=== PATIENT | female | born 1965 | race Caucasian/White ===

== ENCOUNTER → 2016-12-29 | Outpatient (CLI) | payer OTHER ==
--- NOTE | 2016-12-30 09:02 | MR ---
EXAMINATION TYPE: MR knee LT wo con DATE OF EXAM: 12/29/2016 7:24 PM COMPARISON: NONE HISTORY: Swelling and pain left knee TECHNIQUE: Multiplanar, multisequence imaging of the left knee was performed without contrast. FINDINGS: MEDIAL MENISCUS: Anterior and posterior horns are intact without tear. LATERAL MENISCUS: Anterior and posterior horns are intact without tear. CRUCIATE LIGAMENTS: There is abnormal signal and thickening involving the ACL near its femoral insert ion felt to reflect strain with partial tear. No evidence for ACL rupture. PCL has a normal appearanc e. COLLATERAL LIGAMENTS: The medial collateral ligament and lateral collateral ligament complex are intact and unremarkable. EXTENSOR MECHANISM: Visualized quadriceps and patellar tendons are intact. EFFUSION: Small suprapatellar joint effusion identified. POPLITEAL CYST: 3.1 cm fluid collection craniocaudal measurement adjacent to the PCL is felt to refle ct a ganglion cyst. TRICOMPARTMENT SPACES: The tricompartment joint spaces appear mild narrowing mild subchondral cyst fo rmation. Early changes of chondromalacia patella noted. CARTILAGE: The articular cartilage is maintained without abnormal signal or full-thickness defect. BONE MARROW SIGNAL: No focal abnormal marrow signal is appreciated: OTHER: No additional significant abnormality is appreciated. IMPRESSION: 1. Findings felt to reflect ACL strain or partial tear as discussed above. 2. Changes of osteoarthritis. 3. Ganglion cyst adjacent to the PCL.
== END | disposition home or self-care (01) ==
LOC: RADMRIMAIN 18:37
PROVIDERS: ATTEND Orthopaedic Surgery
DX: M17.12 Unilateral primary osteoarthritis, left knee (principal); M67.462 Ganglion, left knee

== ENCOUNTER → 2018-08-05 | Outpatient (CLI) | payer OTHER ==
--- NOTE | 2018-08-05 09:25 | BD ---
EXAMINATION TYPE: Axial Bone Density DATE OF EXAM: 08/05/2018 COMPARISON: NONE CLINICAL HISTORY: Height: 5 FT 4 1/2 IN Weight: 221 FRAX RISK QUESTIONS: RISK FACTORS HISTORY OF: Surgery to Spine/Hip(right/left)/Wrist (right/left): LUMBAR SURG X 2 When: OVER 10 YEARS AGO Active: YES Postmenopausal woman: ABLASION AGE [age] NO REAL SYMPTOMS OF MENOPAUSE NOW MEDICATIONS: Thyroid Medications: YES Which medication: SYNTHROID How Long: SINCE 1998 Additional Medications: SYNTHROID, DISOPYRAMIDE, LISINOPRIL, ESCITALOPRAM Additional History: PT HAD HYPERTHYROIDISM AND HAD THYROID BURNED OUT NOW IS HYPOTHYROID EXAM MEASUREMENTS: Bone mineral density about the R hip (g/cm2): 0.876 Bone mineral density about the L hip (g/cm2): 0.942 T Score values are as follows: -----R Neck: -1.2 -----L Neck: -0.7 -----R Total: -0.2 -----L Total: 0.0 BASELINE Bone mineral density about the L Wrist (g/cm2): 0.680 T Score values are as follows: -----Dist. R+U: -0.6 -----Prox. R+U: 0.1 -----Radius total: 0.1 BASELINE IMPRESSION: Osteopenia (T Score between -2.5 and -1). There is slightly increased risk of fracture and the patient may be considered for treatment. Re-Screen 2-5 years. NOTE: T-SCORE=SD OF THE YOUNG ADULT MEAN.
--- NOTE | 2018-08-06 10:03 | MM ---
Reason for exam: screening (asymptomatic). Last mammogram was performed 4 years and 1 month ago. History: Patient is nulliparous. Family history of breast cancer in cousin at age 35. Taking hormonal contraceptives for 14 years 8 months. Physical Findings: A clinical breast exam by your physician is recommended on an annual basis and results should be correlated with mammographic findings. MG 3D Screening Mammo W/Cad Bilateral CC and MLO view(s) were taken. Prior study comparison: July 14, 2014, bilateral MG screening mammo w CAD. May 14, 2011, bilateral digital screening mammo w/CAD. The breast tissue is heterogeneously dense. This may lower the sensitivity of mammography. There is no discrete abnormality. No significant changes when compared with prior studies. ASSESSMENT: Negative, BI-RAD 1 RECOMMENDATION: Routine screening mammogram of both breasts in 1 year.
== END | disposition home or self-care (01) ==
LOC: RADMAMWWP 07:43
PROVIDERS: ATTEND Obstetrics & Gynecology
DX: Z12.31 Encounter for screening mammogram for malignant neoplasm of breast (principal); M85.88 Other specified disorders of bone density and structure, other site
CPT/HCPCS: 77063; 77067; 77080

== ENCOUNTER 2020-11-29 07:30 | Day surgery (SDC) | payer OTHER ==
[2020-11-27 15:08] VITALS: BMI 36.3
[~2020-11-29 07:30] MED LIST: ALPRAZolam 0.25 MG TAB PO PRN; ALPRAZolam 0.5 MG TAB PO PRN; ASPIRIN 325 MG TAB PO ONE; ATORVASTATIN 80 MG TAB PO ONE; NITROGLYCERIN SL TABS 0.4 MG TAB SUBLINGUAL PRN; SODIUM CHLORIDE 0.9% 1,000 ML in EMPTY BAG 1 BAG IV ONE
[2020-11-29] MEDS ORDERED: SODIUM CHLORIDE 0.9% 1,000 ML IV ONE (07:52)
[2020-11-29 08:07] VITALS: RESP 16; TEMP 98.7
[2020-11-29] MEDS ORDERED: VERAPAMIL 2.5 MG/ML 2 ML AMP ONE (09:29)
[2020-11-29] MEDS ORDERED: LIDOCAINE 1% INJ 10MG/ML (20 ML MDV) ONE (09:29)
[2020-11-29] MEDS ORDERED: HEPARIN SODIUM 1,000 UN/ML (10ML VL) ONE (10:10)
[2020-11-29] MEDS ORDERED: MIDAZOLAM 2 MG/2 ML VIAL IV ONE ×2 (10:16)
[2020-11-29] MEDS ORDERED: LIDOCAINE 1% INJ 10MG/ML (20 ML MDV) SQ ONE (10:20)
[2020-11-29] MEDS: VERAPAMIL SYRINGE (5 MG/10 ML) INTRAARTER ONE ×2 (10:22→10:31)
[2020-11-29] MEDS ORDERED: HEPARIN SODIUM 1,000 UN/ML (10ML VL) IV ONE (10:25)
[2020-11-29] MEDS ORDERED: IOPAMIDOL-370 125ML BTL INJ ONE (10:31)
[2020-11-29] MEDS ORDERED: RX INFO: IV CONTRAST WAS GIVEN 1 EACH MISC MISCELLANE PRN (10:38)
[2020-11-29] MEDS ORDERED: SODIUM CHLORIDE 0.9% 1,000 ML IV SCH (10:45)
--- NOTE | 2020-11-29 12:09 | CC ---
CARDIAC CATHETERIZATION REPORT DATE OF SERVICE: November 29, 2020. INDICATION: This is a very pleasant 55-year-old female patient with obesity and hypertension and paroxysmal atrial fibrillation, who was experiencing symptoms of shortness of breath. She underwent myocardial perfusion imaging by Dr. Gomez and that revealed a reversible defect. Because of that, a heart catheterization was advised. APPROACH: Right radial artery. COMPLICATION: None. LEVEL OF SEDATION: Moderate with sedation length of 15 minutes. PROCEDURE DESCRIPTION: After obtaining an informed consent, the patient was brought to the cardiac refuse laborer. The right radial artery was cannulated using micropuncture technique and a micropuncture wire passed easily then I placed a 6-Nepali sheath. After that I gave the patient 2 mg of verapamil IA and 8000 units of heparin IV. Selective right and left coronary angiogram performed using JR4 and JL3.5 catheters. Left heart catheterization was performed using JR4 catheter which crossed the aortic valve then I did pullback across the valve. The procedure was completed without any complication. SELECTIVE CORONARY ANGIOGRAM: 1. The RCA is a large caliber vessel. It is a dominant vessel. The RCA is angiographically normal. Distally, it bifurcates into PDA and PLV branches, both appear to be angiographically normal. 2. The left main is angiographically normal. It bifurcates into a nondominant left circumflex and left anterior descending artery. 3. Left circumflex is a large caliber vessel. It is a nondominant vessel and appeared to be angiographically normal. 4. The LAD is a large caliber vessel. The LAD is angiographically normal. It proximally gives rise into a large diagonal branch which seems to be angiographically normal. HEMODYNAMICS: The LVEDP was 18 mmHg without significant gradient across aortic valve. CONCLUSION: 1. Normal coronary angiogram. 2. Elevated filling pressure. POSTPROCEDURE MANAGEMENT: 1. Continue the current medical regimen. 2. The patient might benefit from as an outpatient. 3. Follow up with the patient. MMODL / IJN: [id number] /
[2020-11-29 18:07] VITALS: BP 116/57; PULSE 58
== END 2020-11-29 16:00 | disposition home or self-care (01) ==
LOC: CATHCVL 07:30
PROVIDERS: ATTEND Family Medicine
DX: R06.02 Shortness of breath (principal); R94.39 Abnormal result of other cardiovascular function study; I10 Essential (primary) hypertension; I48.0 Paroxysmal atrial fibrillation; I49.3 Ventricular premature depolarization; Z20.822 Contact with and (suspected) exposure to COVID-19; I47.2 Ventricular tachycardia; Z82.49 Family history of ischemic heart disease and other diseases of the circulatory system; E78.00 Pure hypercholesterolemia, unspecified; Z79.890 Hormone replacement therapy; Z79.899 Other long term (current) drug therapy
CPT/HCPCS: 93458; 87635; C1894; J2250; J2001; J1644; Q9967

== ENCOUNTER → 2021-11-15 | Outpatient (CLI) | payer BC ==
--- NOTE | 2021-11-19 13:44 | MM ---
Reason for Exam: Screening (asymptomatic). Last mammogram was performed 3 year(s) and 4 month(s) ago. Patient History: Menarche at age 12. Patient has no children. Currently using Hormonal Contraceptives, for 14 years, 8 months. Maternal cousin had breast cancer, age 35. Film Views: Bilateral CC views were taken. Bilateral MLO views were taken. Prior Study Comparison: 07/14/2014 Bilateral Screening Mammogram, [facility]. 08/05/2018 Bilateral Screening Mammogram, [facility]. Tissue Density: There are scattered fibroglandular densities. Findings: Analyzed By CAD. No significant changes when compared with prior studies. Overall Assessment: Negative, BI-RAD 1 Management: Screening Mammogram of both breasts in 1 year.
== END | disposition home or self-care (01) ==
LOC: RADMAMWWP 07:24
PROVIDERS: ATTEND Family Medicine
DX: Z12.31 Encounter for screening mammogram for malignant neoplasm of breast (principal); Z80.3 Family history of malignant neoplasm of breast
CPT/HCPCS: 77067

== ENCOUNTER → 2022-03-28 | Outpatient (CLI) | payer BC ==
--- NOTE | 2022-03-28 09:01 | MM ---
Reason for Exam: Clinical finding. Last screening mammogram was performed 4 month(s) ago. Indicated Problems: Pain of the left side (Global) for 3 Week(s) : UOQ AND ACROSS TOP. Patient History: Menarche at age 12. Patient has no children. Postmenopausal. Currently using Hormonal Contraceptives, for 14 years, 8 months. Maternal cousin had breast cancer, age 35. Risk Values: Yaritza 5 year model risk: 1.4%. NCI Lifetime model risk: 8.7%. Prior Study Comparison: 05/14/2011 Bilateral Screening Mammogram, [facility]. 07/14/2014 Bilateral Screening Mammogram, [facility]. 08/05/2018 Bilateral Screening Mammogram, [facility]. 11/15/2021 Bilateral MG screening mammo w CAD, [facility]. Tissue Density: Left: There are scattered fibroglandular densities. Findings: Analyzed By CAD. No worrisome cluster marked calcifications, architectural distortion, or mass identified. No abnormality demonstrated within the patient's region of pain. Overall Assessment: Incomplete: need additional imaging evaluation, BI-RAD 0 Management: Diagnostic Breast Ultrasound of the left breast. A clinical breast exam by your physician is recommended on an annual basis and results should be correlated with mammographic findings. This exam should not preclude additional follow-up of suspicious palpable abnormalities. Results were given to the patient verbally at the time of exam. Electronically signed and approved by: Vic Beckman D.O.
--- NOTE | 2022-03-28 09:10 | USB ---
Reason for Exam: Clinical finding. Indicated Problems: Pain of the left side (Focal) for 3 Week(s) : UOQ PAIN. Patient History: Menarche at age 12. Patient has no children. Postmenopausal. Currently using Hormonal Contraceptives, for 14 years, 8 months. Maternal cousin had breast cancer, age 35. Risk Values: Yaritza 5 year model risk: 1.4%. NCI Lifetime model risk: 8.7%. Technique: Method: Targeted. Prior Study Comparison: 07/14/2014 Bilateral Screening Mammogram, [facility]. 08/05/2018 Bilateral Screening Mammogram, [facility]. 11/15/2021 Bilateral MG screening mammo w CAD, [facility]. Findings: The upper outer quadrant of the left breast, the axilla of the left breast and the retroareolar of the left breast were scanned. Limited ultrasound images of the left breast in radial approach from 12:00 to 3:00 in the patient's region of pain were obtained. Additional imaging of the retroareolar region and left axilla were obtained. No solid or cystic masses are identified.. Overall Assessment: Negative, BI-RAD 1 Management: Screening Mammogram of both breasts in 1 year. A clinical breast exam by your physician is recommended on an annual basis and results should be correlated with mammographic findings. Electronically signed and approved by: Vic Beckman D.O.
== END | disposition home or self-care (01) ==
LOC: RADMAMWWP 07:40
PROVIDERS: ATTEND Family Medicine
DX: R92.8 Other abnormal and inconclusive findings on diagnostic imaging of breast (principal); Z78.0 Asymptomatic menopausal state; Z80.3 Family history of malignant neoplasm of breast
CPT/HCPCS: 77061; 77065

== ENCOUNTER → 2024-08-01 | Outpatient (CLI) | payer BC ==
--- NOTE | 2024-08-01 10:10 | MM ---
Reason for Exam: Screening (asymptomatic). Last mammogram was performed 2 year(s) and 8 month(s) ago. Patient History: Menarche at age 12. Patient has no children. Postmenopausal. Hormonal Contraceptives for 14 years, 8 months. Maternal cousin had breast cancer, age 35. Risk Values: Yaritza 5 year model risk: 1.5%. NCI Lifetime model risk: 8.3%. Prior Study Comparison: 08/05/2018 Bilateral Screening Mammogram, [facility]. 11/15/2021 Bilateral MG screening mammo w CAD, [facility]. 03/28/2022 Left MG 3D diag mammo w/cad , [facility]. Tissue Density: There are scattered areas of fibroglandular density. Findings: Analyzed By CAD. Right breast: There is no suspicious group of microcalcifications or new suspicious mass. Left breast: There is no suspicious group of microcalcifications or new suspicious mass. Overall Assessment: Negative, BI-RAD 1 Management: Screening Mammogram of both breasts in [address] [facility] will attempt to contact patient to return for supplemental views and ultrasound if indicated. Patient should continue monthly self-breast exams. A clinical breast exam by your physician is recommended on an annual basis. This exam should not preclude additional follow-up of suspicious palpable abnormalities. Note on Yaritza scores and lifetime risk: 1. A Yaritza score greater than 3% is considered moderate risk. If this is the case, consider specialist referral to assess eligibility for a risk reducing agent. 2. If overall lifetime risk for the development of breast cancer is 20% or higher, the patient may qualify for future screening with alternating mammogram and breast MRI. [facility], , 08/01/2024 10:06 AM. Electronically signed and approved by: Sander Arnold DO
== END | disposition home or self-care (01) ==
LOC: RADMAMWWP 08:56
PROVIDERS: ATTEND Family Medicine
DX: Z12.31 Encounter for screening mammogram for malignant neoplasm of breast (principal); R92.323 Mammographic fibroglandular density, bilateral breasts; Z78.0 Asymptomatic menopausal state; Z80.3 Family history of malignant neoplasm of breast
CPT/HCPCS: 77067

== ENCOUNTER 2024-08-31 09:45 | Day surgery (SDC) | payer BC ==
[2024-08-31 10:18] VITALS: TEMP 97.2
[2024-08-31] MEDS: LACTATED RINGERS 1,000 ML IV SCH (10:24)
[2024-08-31] MEDS: IV FLUID CONTINUATION 1,000 ML IV ONE (10:25)
[2024-08-31] MEDS: LIDOCAINE 1% (10MG/ML) FOR IV START INTRADERMA STA (10:25)
[2024-08-31] MEDS: fentaNYL (PF) 50 MCG/ML 2 ML AMP IVP STA (10:36)
[2024-08-31] MEDS ORDERED: PROPOFOL 10 MG/ML 20 ML VIAL IV ONE (10:58)
--- NOTE | 2024-08-31 11:11 | P.PCN ---
Date of Procedure: 08/31/24 Procedure(s) Performed: BRIEF HISTORY: Patient is a 58-year-old pleasant white female scheduled for an elective colonoscopy as a part of screening for colon cancer. PROCEDURE PERFORMED: Colonoscopy. PREOPERATIVE DIAGNOSIS: Screening for colon cancer. IV sedation per Anesthesia. PROCEDURE: After informed consent was obtained, the patient, was brought into the endoscopy unit. IV sedation was administered by Anesthesia under continuous monitoring. Digital rectal examination was normal. Initially the Olympus CF-160 flexible video colonoscope was then inserted in the rectum, gradually advanced into the cecum without any difficulty. Careful examination was performed as the scope was gradually being withdrawn. Ileocecal valve and the appendiceal orifice were visualized and appeared normal. Prep was excellent. Mucosa of the cecum, ascending colon, transverse colon, descending colon, sigmoid colon, and rectum appeared normal. Mild melanosis coli noted. Retroflexion was performed in the rectum and no lesions were seen. The patient tolerated the procedure well. IMPRESSION: Normal-appearing colon from rectum to cecum with no evidence of r colorectal neoplasia Mild melanosis coli. RECOMMENDATIONS: Findings of this examination were discussed with the patient as well as her family. Was advised to have repeat screening colonoscopy in 10 years.
[2024-08-31 11:38] VITALS: BP 119/61; PULSE 58; RESP 18
== END 2024-08-31 12:44 | disposition home or self-care (01) ==
LOC: ORWHC2ENDO 09:45
PROVIDERS: ATTEND Internal Medicine Gastroenterology
DX: Z12.11 Encounter for screening for malignant neoplasm of colon (principal); K63.89 Other specified diseases of intestine; I48.91 Unspecified atrial fibrillation; I10 Essential (primary) hypertension; E78.5 Hyperlipidemia, unspecified; E03.9 Hypothyroidism, unspecified; F41.9 Anxiety disorder, unspecified; F32.A Depression, unspecified; Z79.890 Hormone replacement therapy; Z79.899 Other long term (current) drug therapy; Z98.890 Other specified postprocedural states
CPT/HCPCS: 45378; J3010; J2704